=== PATIENT | female | born 1975 | race American Indian/Alaskan Native ===

== ENCOUNTER 2016-11-23 21:49 | Emergency (ER) | payer MEDICAID ==
[2016-11-23 22:28] VITALS: BP 124/92
[2016-11-23 23:11] LABS: Basophils % (Auto) 0.8 % (0.0-1.8); Eosinophils % (Auto) 2.9 % (0.0-4.3); Hematocrit 34.4 % (30.3-42.9); Mean Corpuscular HGB Conc 32 % (30-34); Mean Corpuscular Hemoglobin 27 pg (28-32); Mean Corpuscular Volume 83 fl (79-97); Platelet Count 407 K/mm3 (140-440); Red Blood Count 4.13 M/mm3 (3.65-5.03); Red Cell Distribution Width 14.9 % (13.2-15.2); White Blood Count 5.6 K/mm3 (4.5-11.0)
[2016-11-23 23:14] LABS: Bacteria,Urine 2+ /HPF (Negative); Bilirubin,Urine NEG (Negative); Blood,Urine LG (Negative); Ketones,Urine NEG (Negative); Leukocyte Esterase,Urine TR (Negative); Mucus,Urine 1+ /HPF; Nitrite,Urine NEG (Negative); Protein,Urine <15 mg/dL mg/dL (Negative); Urobilinogen,Urine < 2.0 mg/dL (<2.0)
[2016-11-23 23:34] LABS: Alanine Aminotransferase 9 units/L (7-56); Albumin 3.9 g/dL (3.9-5); Albumin/Globulin Ratio 1.3 %; Alkaline Phosphatase 51 units/L (35-129); Anion Gap 16 mmol/L; BUN/Creatinine Ratio 16.66; Bilirubin,Total 0.2 mg/dL (0.1-1.2); Blood Urea Nitrogen 10 mg/dL (7-17); Calcium 8.8 mg/dL (8.4-10.2); Carbon Dioxide 26 mmol/L (22-30); Chloride 105.6 mmol/L (98-107); Glucose 93 mg/dL (65-100); Lipase 19 units/L (13-60); Potassium 4.1 mmol/L (3.6-5.0); Sodium 143 mmol/L (137-145); Total Protein 6.8 g/dL (6.3-8.2)
[2016-11-24] MEDS ORDERED: TYLENOL ONE (02:37)
--- NOTE | 2016-11-25 01:36 | ED Elopement Review ---
ED Pt Elopement review - Results review Lab results: Laboratory Tests 11/23/16 11/23/16 11/23/16 22:30 22:54 22:54 WBC 5.6 RBC 4.13 Hgb 11.0 Hct 34.4 MCV 83 MCH 27 L MCHC 32 RDW 14.9 Plt Count 407 Lymph % (Auto) 30.8 [place] % (Auto) 7.3 Eos % (Auto) 2.9 Baso % (Auto) 0.8 Lymph # 1.7 Quay # 0.4 Eos # 0.2 Baso # 0.0 Seg Neutrophils % 58.2 Seg Neutrophils # 3.3 Sodium 143 Potassium 4.1 Chloride 105.6 Carbon Dioxide 26 Anion Gap 16 BUN 10 Creatinine 0.6 L Estimated GFR > 60 BUN/Creatinine Ratio 16.66 Glucose 93 Calcium 8.8 Total Bilirubin 0.2 AST 15 ALT 9 Alkaline Phosphatase 51 Troponin T < 0.010 Total Protein 6.8 Albumin 3.9 Albumin/Globulin Ratio 1.3 Lipase 19 HCG, Qual Urine Color Yellow Urine Turbidity Clear Urine pH 5.0 Ur Specific [place] 1.013 Urine Protein <15 mg/dl Urine Glucose (UA) Neg Urine Ketones Neg Urine Blood Lg Urine Nitrite Neg Urine Bilirubin Neg Urine Urobilinogen < 2.0 Ur Leukocyte Esterase Tr Urine WBC (Auto) 11.0 H Urine RBC (Auto) 42.0 U Epithel Cells (Auto) < 1.0 Urine Bacteria (Auto) 2+ Urine Mucus 1+ 11/23/16 22:54 WBC RBC Hgb Hct MCV MCH MCHC RDW Plt Count Lymph % (Auto) [place] % (Auto) Eos % (Auto) Baso % (Auto) Lymph # Quay # Eos # Baso # Seg Neutrophils % Seg Neutrophils # Sodium Potassium Chloride Carbon Dioxide Anion Gap BUN Creatinine Estimated GFR BUN/Creatinine Ratio Glucose Calcium Total Bilirubin AST ALT Alkaline Phosphatase Troponin T Total Protein Albumin Albumin/Globulin Ratio Lipase HCG, Qual Negative Urine Color Urine Turbidity Urine pH Ur Specific [place] Urine Protein Urine Glucose (UA) Urine Ketones Urine Blood Urine Nitrite Urine Bilirubin Urine Urobilinogen Ur Leukocyte Esterase Urine WBC (Auto) Urine RBC (Auto) U Epithel Cells (Auto) Urine Bacteria (Auto) Urine Mucus - Call Back decision Pt Call Back Decision: No action required
== END 2016-11-24 06:15 | disposition left against medical advice (07) ==
LOC: ED 21:49
DX: R07.9 Chest pain, unspecified (principal); R11.2 Nausea with vomiting, unspecified; R06.02 Shortness of breath; Z53.21 Procedure and treatment not carried out due to patient leaving prior to being seen by health care provider
CPT/HCPCS: 36415; 80053; 81001; 83690; 84484; 84703; 85025